=== PATIENT | female | born 1955 | race Caucasian/White ===

== ENCOUNTER 2021-12-15 09:26 | Outpatient (CLI) | payer OTHER | END 2021-12-15 10:00 | disposition home or self-care (01) | LOC: EKG 09:26 → LAB 09:26 | PROVIDERS: ATTEND Orthopaedic Surgery | DX: Z76.89 Persons encountering health services in other specified circumstances (principal); I10 Essential (primary) hypertension; I49.9 Cardiac arrhythmia, unspecified ==

== ENCOUNTER 2022-01-02 09:06 | Day surgery (SDC) | payer OTHER ==
[~2022-01-02] VITALS: Ht 160 cm; Wt 81.6 kg
== END 2022-01-02 19:45 | disposition home or self-care (01) ==
LOC: CIR.AMB 09:06
PROVIDERS: ATTEND Orthopaedic Surgery
DX: M23.261 Derangement of other lateral meniscus due to old tear or injury, right knee (principal); M22.11 Recurrent subluxation of patella, right knee; M22.41 Chondromalacia patellae, right knee; M12.261 Villonodular synovitis (pigmented), right knee; I10 Essential (primary) hypertension; J45.909 Unspecified asthma, uncomplicated; Z87.891 Personal history of nicotine dependence